=== PATIENT | female | born 1975 | race Caucasian/White ===

== ENCOUNTER 2017-12-26 05:52 | Day surgery (SDC) | payer OTHER, SELFPAY ==
[2017-12-21 15:37] LABS: International Normalized Ratio 0.9; Partial Thromboplast Time 28.5 Seconds (24.1-36.2); Prothrombin Time (Protime)PT. 12.3 SECONDS (11.7-14.9)
[2017-12-21 15:38] LABS: Hematocrit 42.7 % (37-47); Hemoglobin 14.7 g/dl (12.0-15.0); Mean Corp Hgb Conc 34.4 g/gl (32-36); Mean Corpuscular Hgb 31.5 pg (27.0-32.0); Mean Corpuscular Volume 91.6 fL (81-99); Mean Platelet Vol. 9.8 fl (6.2-12.0); Platelet Count 341 K/mm3 (150-450); RBC Distribution Width CV 12.1 % (11.6-14.6); RBC Distribution Width SD 39.8 fl (35.1-43.9); Red Blood Count 4.66 M/mm3 (4.2-5.4); White Blood Count 7.8 K/mm3 (4.4-11.0)
[2017-12-21 15:55] LABS: Pregnancy, Serum, hCG Quali. NEGATIVE Negative (0-9 Nonpreg); Scan Indicated on CBC? Y/N NO
--- NOTE | 2017-12-25 21:35 | HP.PCM_ITS ---
History and Physical Date of Admission: 12/26/17 Surgical History and Physical Bettina Chandler, a 42 year old female 1 0 0 0 1, presents for LST with filsche clips and melissa distal salpingectomy on December 26, 2017 at 7:30. -- Desires Permanent Sterilization -- PT is a 42 yo female, G-1 P-1. Pt has been on Depo Provera for a total of 18 years, constant for the last 9 years. Recently switched to [place] control pill. PT is amenorrheic. Pt is here today as she would like to have a tubal ligation. PT had a pap at [facility] in November 2017 and a mammogram done at [place] in 12/2017. PT denies any problems or concerns at this time. MEDICATIONS HISTORY: Patient is also takin. Celexa 40 mg tablet, 1 PO QD 2. [place] 0.35 mg tablet, 1 PO QD 3. hydrochlorothiazide 12.5 mg capsule, 1 PO QD 4. Lotensin HCT 20 mg-25 mg tablet, 1 PO QD ALLERGIES: No Known Allergies Illnesses - migraines Accidents - None Hospitalizations - Childbirth Review of Systems: GENERAL - Denies fever, or chills SKIN - Denies skin changes EYES - Denies visual changes EARS - Denies difficulty hearing NOSE - Denies nasal congestion or bleeding MOUTH - Denies sore throat or difficulty swallowing NECK - Denies pain or swelling RESPIRATORY - Denies shortness of breath or wheezing CARDIOVASCULAR - Denies palpitations or chest pain GASTROINTESTINAL - Denies nausea, vomiting, diarrhea, constipation GENITOURINARY - Denies dysuria, frequency of urination, incontinence of urine MUSCULOSKELETAL - Denies joint or muscle pain NEUROLOGICAL - Denies localized numbness or weakness PSYCHIATRIC - Denies depression or anxiety ENDOCRINE - Denies heat or cold intolerance, weight loss or gain HEMATO-IMMUNOLOGIC - Denies excesive bleeding with cuts SOCIAL HISTORY: Alcohol Use - occasionally Smoking - used to smoke but quit Diet - balanced Diet Lifestyle - moderate stress lifestyle Exercise - regular Employer - [employer] Illicit Drug Use - denies use of street drugs Spouse-Sig Other Name - Sudarshan Children Name(s) - Ernesto FAMILY HISTORY: MENSTRUAL HISTORY: LMP Known?- on Depo Provera x 18 years PAST PREGNANCIES: Total Pregnancies - 1; Full Term Pregnancies - 1; Premature - 0; Abortions, Induced - 0; Abortions, Spontaneous - 0; Ectopics - 0; Multiple Births - 0; Living Children - 1 SURGICAL HISTORY: 1. 03/07/1995 wisdom teeth ; - 2. 01/05/2009 ; - PHYSICAL EXAM BP- 120/72 Sitting, Right arm, regular cuff Weight- 153.92926 lbs Height- 62.50 inch BMI:27.60 CONSTITUTIONAL - NAD, well nourished, and well developed SKIN - No rash, lesions, or ulcers HEENT - Normocephalic, PERRLA, EOMI NECK - No nodes, no nuchal rigidity and thyroid normal size and texture LYMPH NODES - Palpation of lymph nodes in neck and groins within normal limits LUNGS - CTA x2 without wheezes, crackles or rales CARDIAC - Regular rate and rhythm without rubs, murmurs, or gallops ABDOMEN - Without hepatosplenomegaly, distention, masses, rebound, or guarding; normal bowel sounds; no hernias EXTREMITIES - No edema or calf tenderness NEUROLOGICAL - Cranial nerves II-XII grossly intact PSYCHIATRIC - A and O to time, place, person, mood and affect ASSESSMENT/PLAN: 1. Encounter For Sterilization Desires permanent steriliazation. Plan LST with filsche clips and distal salpingectomy. Discussed RBAs and all questions answered.
[2017-12-26] VITALS (7 sets, daily range): BP systolic 107–135; BP diastolic 68–85; PULSE 60–91; RESP 16; TEMP 36.5–37.3; O2SAT 92–98; BMI 27.7
--- NOTE | 2017-12-26 | FALS_PTH ---
PATIENT: SUSANNE ENGLAND [place] [facility] [place][id number] AGE/SX: 42/F ROOM: RE12/26/[address]: Dr. Choco Khan MD : [id number] BED: DIS: 12/26/2017 SPEC #: [id number] RECD: 12/26/17 13:44 STATUS: ALBA SOLO #: [id number] [place]: 12/26/17 00:[address]: Choco Khan DEPT: SURGICAL PATHOLOGY RECD BY: Dmitry Razo ENTERED: 12/26/17 13:44 SP TYPE: FALL TUBES OTHR DR: KESHAWN Johnson Tissues: Fallopian tube Procedures: Surgery Specimen Level II HEADER OPERATION: Laparoscopic bilateral tubal occlusion with Filshie clips, distal bilateral salpingectomy PRE-OP DIAGNOSIS: Sterilization request TISSUE SUBMITTED: Bilateral distal fallopian tubes MICROSCOPIC DIAGNOSIS Bilateral distal fallopian tubes: Bilateral fallopian tubes including fimbrial ends, no pathologic diagnosis. SJ:jinny 12/27/17 MICROSCOPIC DESCRIPTION Slides are reviewed. GROSS DESCRIPTION Received is one container labeled with the patient's name and designated bilateral distal fallopian tubes. The specimen consists of bilateral fallopian tubes including fimbrial ends measuring 4.5 cm in length and 0.6 cm in diameter and 4 cm in length and 0.6 cm in diameter. Sections do not reveal any mass lesion. The fallopian tubes are not identified as right or left. [employer] Specialist sections are submitted in two cassettes with each cassette containing one fallopian tube. / Lydia 12/26/17 TC:4 CPT: 80693 x2
[2017-12-26 06:38] LABS: Internal QC Validated? YES +Cl - CLEAR BKGD; Pregnancy, Urine Negative Negative
--- NOTE | 2017-12-26 07:32 | PCM.OP.BLANK ---
Operative Report Date of Procedure: 12/26/17 Surgeon: Choco Khan MD, FACOG Anesthesia: Lizet Membreno CRNA Type of Anesthesia: General Endotracheal Pre-Op Diagnosis: Desires Sterilization Postoperative diagnosis: Desires Sterilization Procedure: Bilateral Tubal Occlusion with Filshie Clips and Partial Distal Salpingectomy Findings: 8 cm uterus with normal appearing fallopian tubes and ovaries. Indications: This is a 42 year old patient who has the above diagnosis. She has considered sterilization for quite some time. She is aware of the permanent nature of the procedure, the failure rate of 1-2%, and the availability of other nonpermanent control options. All questions were answered to reconsider the patient well-informed. Procedure: The patient was taken to the operating room where after induction of general anesthesia, she was placed in the dorsolithotomy position and prepped and draped in the usual sterile fashion. The bladder was drained of approximately 25 cc of clear yellow urine with a catheter. Attention was turned toward the laparoscopic portion of the procedure. Approximately 22 cc of half percent ropivacaine was injected subumbilically suprapubically and midway between. A 5 mm bladeless trocar was placed subumbilically and intraperitoneal placement confirmed. After CO2 insufflation was complete, a 7/8 mm bladeless trocar was introduced suprapubically. The above findings were noted. An micro-grasper alligator was then placed midway between these 2 ports for tubal manipulation. Each fallopian tube was identified to its fimbriated end and an Enseal device was used to divide the mesosalpinx leaving approximately 1 cm stump of fallopian tube on each side. Filshie clips were placed on the stump of each fallopian tube. The peritoneal cavity and upper abdomen were examined and noted to be normal. Photographs were taken. Laparoscopic instruments with as much CO2 gas as possible were removed and incisions were closed with interrupted 4-0 Monocryl suture. Steri-Strips placed across the incision. Patient tolerated procedure well was taken to recovery room in satisfactory condition. Sponge instrument and needle counts were all reportedly correct. Estimated blood loss for the case was minimal. Cefotan 2 g IV was given prior to beginning the operative procedure. There were no apparent complications of the surgery. Specimens to pathology was distal fallopian tubes.
--- NOTE | 2017-12-26 07:34 | DCINST_ITS ---
Discharge Diet: No Restrictions Discharge Activity: Return to Normal Activity, May Drive - when you are no longer taking pain/narcotic medicines., May Shower, May Take a Tub Bath Additional Activity Instructions:: Ambulate often the next week after surgery. Nothing in the vagina for 5 days. Call your doctor if your incision/area has: Continuous Slow Oozing, Sudden Increased Bleeding, Increased Pain/ Swelling, Increased Redness, Foul Smelling Discharge Call your doctor if you observe: Fever of 101 or Higher, Inability to urinate, Inability to have a bowel movement, Using more than one pad per hour Allergies/Adverse Reactions: Allergies No Known Allergies Allergy (Verified 12/22/17 08:19) Medications to take at Discharge Fluoxetine [Prozac] 20 mg PO DAILY 12/22/17 Hydrochlorothiazide [Hctz] 12.5 mg PO DAILY 12/22/17 Losartan Potassium [Cozaar] 25 mg PO DAILY 12/22/17 Norethindrone [[place]] 1 mg PO DAILY 12/22/17 Hydrocodone/Acetaminophen [[place] 5-325 Tablet] 1 ea PO Q6H PRN PRN 7 Days #10 tab 12/26/17 The following prescriptions were given: Hydrocodone/Acetaminophen [[place] 5-325 Tablet] 1 ea PO Q6H PRN PRN 7 Days #10 tab PRN Reason: Severe Pain (-12/14) Primary Care Physician: Marli Vazquez PA [Primary Care Provider] - Test Results: Test results from this visit will be discussed in further detail at your follow- up appointment, if applicable. Please Follow Up With: Choco Khan MD - [phone] When: 2-3 weeks
[2017-12-26] MEDS: Ropivacaine 0.5% 30 ML Vial (08:05)
[2017-12-26] MEDS: HYDROcodone Bitartrate/Apap 5/325 Tablet PO (09:42)
== END 2017-12-26 11:01 | disposition home or self-care (01) ==
LOC: SDC 05:52 → AC 05:55
PROVIDERS: Family Provider Physician Assistant; PCP Physician Assistant; Referring Provider Obstetrics & Gynecology; Visit Provider Obstetrics & Gynecology
PROC: (CPT 58671; principal; 2017-12-26 07:15)
DX: Z30.2 Encounter for sterilization (principal); Z87.891 Personal history of nicotine dependence
CPT/HCPCS: 00840; 58661; 58671; 36415; 81025; 84703; 85027; 85610; 85730; 86850; 86900; 88302; J7120; C1760; J2405